=== PATIENT | female | born 1980 | race Caucasian/White ===

== ENCOUNTER 2017-09-27 21:41 | Emergency (ER) | payer MEDICARE, OTHER ==
[2017-09-27 22:52] LABS: URINE BLOOD (Dip) POC Negative (NEGATIVE); URINE GLUCOSE (Dip) POC Negative (NEGATIVE); URINE KETONES (Dip) POC Trace (NEGATIVE); URINE LEUKOCYTE EST (Dip) POC Negative (NEGATIVE); URINE NITRITE (Dip) POC Negative (NEGATIVE); URINE TOTAL PROTEIN POC Negative (NEGATIVE)
[2017-09-27 22:52] LABS: URINE PH (Dip) POC 5.5 (5.0-8.5)
== END 2017-09-28 00:38 | disposition home or self-care (01) ==
LOC: FTE 21:41
DX: M54.5 Low back pain (principal); I10 Essential (primary) hypertension
CPT/HCPCS: 72131; 81003; 81025; 99284-25

== ENCOUNTER 2018-03-07 13:45 | Emergency (ER) | payer MEDICARE, OTHER ==
[2018-03-07] MEDS: predniSONE 20 MG TAB PO (15:15)
[2018-03-07 15:17] LABS: URINE PH (Dip) POC 6.5 (5.0-8.5)
[2018-03-07 15:17] LABS: URINE BLOOD (Dip) POC Negative (NEGATIVE); URINE GLUCOSE (Dip) POC Negative (NEGATIVE); URINE KETONES (Dip) POC Negative (NEGATIVE); URINE LEUKOCYTE EST (Dip) POC Negative (NEGATIVE); URINE NITRITE (Dip) POC Negative (NEGATIVE); URINE TOTAL PROTEIN POC Negative (NEGATIVE)
[2018-03-07] MEDS: KETOROLAC 30 MG INJ IM (15:25)
== END 2018-03-07 17:41 | disposition home or self-care (01) ==
LOC: FTE 13:45
DX: M54.41 Lumbago with sciatica, right side (principal); I10 Essential (primary) hypertension
CPT/HCPCS: 72131; 81003; 81025; 96372; 99285-25

== ENCOUNTER 2018-04-28 13:25 | Emergency (ER) | payer MEDICARE, OTHER ==
[2018-04-28] MEDS: HYDROCODONE/APAP (5/325) TAB PO (14:40)
[2018-04-28] MEDS: IBUPROFEN 200 MG TAB PO (14:41)
== END 2018-04-28 16:02 | disposition home or self-care (01) ==
LOC: FTE 13:25
DX: S40.012A Contusion of left shoulder, initial encounter (principal); I10 Essential (primary) hypertension; W01.0XXA Fall on same level from slipping, tripping and stumbling without subsequent striking against object, initial encounter; Y92.9 Unspecified place or not applicable
CPT/HCPCS: 73030; 73060; 99283